=== PATIENT | female | born 1960 | race Caucasian/White ===

== ENCOUNTER 2019-03-29 13:19 | Emergency (ER) | payer OTHER ==
[~2019-03-29] VITALS: Ht 177.8 cm; Wt 105.8 kg
[~2019-03-29 13:19] MED LIST: CELE20TA OR; FLECTOR PATCH TOP; FLEXARIL PO; FLEXERIL PO; KLON1TAB OR; LISI20TA5 PO; LOPR50TA OR; TRAM50TA2 OR; VICO5TA PO
[2019-03-29] MEDS ORDERED: DICYCLOMINE INJ 20MG/2ML (J0500) IM ONE (14:00)
[2019-03-29 14:23] LABS: BASO % 0.5 % (0.0-1.0); EOS % 0.6 % (0.0-3.0); HEMATOCRIT 43.3 % (36.0-47.0); HEMOGLOBIN 14.5 g/dl (12.0-15.5); LYMPH % 30.5 % (24.0-44.0); MEAN CORPUSCULAR HEMOGLOBIN 30.8 pg (27.0-33.0); MEAN CORPUSCULAR HGB CONC 33.5 g/dl (32.0-36.5); MEAN CORPUSCULAR VOLUME 91.9 fl (80.0-96.0); MONO # 0.5 10^3/uL (0.0-0.8); MONO % 6.9 % (0.0-5.0); NEUTROPHILS # 4.1 10^3/uL (1.5-8.5); NEUTROPHILS % 61.3 % (36.0-66.0); PLATELET COUNT, AUTOMATED 266 10^3/uL (150-450); RED BLOOD COUNT 4.71 10^6/uL (4.00-5.40); WHITE BLOOD COUNT 6.7 10^3/uL (4.0-10.0)
[2019-03-29 14:54] LABS: ALBUMIN 3.8 GM/DL (3.2-5.2); ALT/SGPT 23 U/L (12-78); BILIRUBIN,DIRECT < 0.1 MG/DL (0.0-0.2); BILIRUBIN,TOTAL 0.4 MG/DL (0.2-1.0); BLOOD UREA NITROGEN 9 MG/DL (7-18); CALCIUM LEVEL 9.6 MG/DL (8.5-10.1); CARBON DIOXIDE LEVEL 27 MEQ/L (21-32); CHLORIDE LEVEL 110 MEQ/L (98-107); CREATININE FOR GFR 0.94 MG/DL (0.55-1.30); GLOMERULAR FILTRATION RATE > 60.0 (>51); GLUCOSE, FASTING 91 MG/DL (70-100); LIPASE 163 U/L (73-393); POTASSIUM SERUM 4.4 MEQ/L (3.5-5.1); SODIUM LEVEL 143 MEQ/L (136-145); TOTAL PROTEIN 6.8 GM/DL (6.4-8.2)
[2019-03-29] MEDS ORDERED: ISOVUE-370 76% 100ML VIAL (Q9967) As Ordered ONE (15:00)
[2019-03-29] MEDS ORDERED: NS 1,000 ML IV ONE (15:30)
--- NOTE | 2019-03-29 15:52 | REP ---
CT abdomen and pelvis with IV but without oral contrast: History: Abdomen pain. CT contrast dose: 100 mL of intravenous Isovue [address] findings: Digital preliminary transmission builder radiograph is unremarkable. The lung bases are clear on axial CT images. There is mild diffuse fatty infiltration in the liver. No focal hepatic lesion is seen. The spleen is normal in size, homogeneous in texture. No abnormalities noted in the pancreas. The gallbladder is surgically absent. Kidneys enhance symmetrically and are morphologically intact. Normal caliber aorta is seen. A normal appendix is observed in the right lower quadrant. There is mild pancolonic diverticulosis without CT evidence of diverticulitis. No gastrointestinal tract obstruction is seen. No abdominal wall defect is seen. No free fluid or free intraperitoneal air is seen. Uterus is surgically absent. Impression: Mild pancolonic diverticulosis without CT evidence of diverticulitis. Mild diffuse fatty infiltration of the liver. Normal appendix. Electronically Signed by Nicko Martinez MD 03/29/2019 04:59 P
[2019-03-29 16:00] VITALS: BP 141/70
[2019-03-29] MEDS ORDERED: REGL10TA6 PO (16:11)
[2019-03-29] MEDS ORDERED: SUCR1SS PO (16:12)
[2019-03-29] MEDS ORDERED: PEPC1TAB5 PO (16:12)
== END 2019-03-29 16:30 | disposition home or self-care (01) ==
LOC: M ED 13:19
DX: R10.9 Unspecified abdominal pain (principal); I10 Essential (primary) hypertension; F17.200 Nicotine dependence, unspecified, uncomplicated; Z79.899 Other long term (current) drug therapy
CPT/HCPCS: 74177; 80048; 80076; 83690; 85025; 96360; 96372; 99284; J0500; Q9967

== ENCOUNTER → 2019-07-13 | Outpatient (REF) | payer OTHER ==
[~2019-07-13] MED LIST changes: +CELE20TA PO; +LOPR1TAB6 PO; +PEPC1TAB5 PO; +REGL10TA6 PO; +SUCR1SS PO
== END ==
LOC: M LAB REF 11:56
PROVIDERS: ATTEND Internal Medicine Gastroenterology
DX: K58.2 Mixed irritable bowel syndrome (principal)

== ENCOUNTER 2019-07-17 09:41 | Day surgery (SDC) | payer OTHER ==
[~2019-07-17] VITALS: Ht 170.2 cm; Wt 104.8 kg
[~2019-07-17 09:41] MED LIST changes: +NS 1,000 ML IV ONE
[2019-07-17] MEDS ORDERED: LIDOCAINE 2% INJ 100 MG/5 ML SDV (FOR ANES.) As Ordered ONE (10:34)
[2019-07-17] MEDS ORDERED: propofoL 200 MG/20 ML VIAL As Ordered ONE (10:34)
[2019-07-17] MEDS ORDERED: fentaNYL 100 MCG/2 ML INJECTION (J3010) As Ordered ONE (11:08)
--- NOTE | 2019-07-17 12:00 | ROOR ---
Patient Name: Kenzie Randolph Procedure Date: 07/17/2019 11:44 AM Date of : 1960 Age: 59 Room: [facility] Gender: Female Note Status: Finalized Procedure: Upper GI endoscopy Indications: Generalized abdominal pain, Weight loss Providers: Ezra CLEMONS MD Referring MD: DMITRY SINCLAIR DO Requesting Provider: Medicines: Monitored Anesthesia Care Complications: No immediate complications. Procedure: Pre-Anesthesia Assessment: - The heart rate, respiratory rate, oxygen saturations, blood pressure, adequacy of pulmonary ventilation, and response to care were monitored throughout the procedure. The Endoscope was introduced through the mouth, and advanced to the second part of duodenum. The upper GI endoscopy was accomplished without difficulty. The patient tolerated the procedure well. Findings: The examined esophagus was normal. The esophagus was normal. The stomach was normal. (perhaps large/compliant stomach, but otherwise normal) The examined duodenum was normal. Impression: - Normal esophagus. - Normal stomach. - Normal examined duodenum. - No specimens collected. Recommendation: - Observe patient's clinical course. - Perform a colonoscopy today. Ezra Clemons MD Ezra CLEMONS MD 07/17/2019 11:59:41 AM Electronically signed by Ezra CLEMONS MD Number of Addenda: 0 Note Initiated On: 07/17/2019 11:44 AM Estimated Blood Loss: Estimated blood loss: none.
--- NOTE | 2019-07-17 12:16 | ROOR ---
Patient Name: Kenzie Randolph Procedure Date: 07/17/2019 11:45 AM Date of : 1960 Age: 59 Room: [facility] Gender: Female Note Status: Finalized Procedure: Colonoscopy Indications: Irritable bowel syndrome, Change in bowel habits, Chronic diarrhea Providers: Ezra CLEMONS MD Referring MD: DMITRY SINCLAIR DO Requesting Provider: Medicines: Monitored Anesthesia Care Complications: No immediate complications. Procedure: Pre-Anesthesia Assessment: - The heart rate, respiratory rate, oxygen saturations, blood pressure, adequacy of pulmonary ventilation, and response to care were monitored throughout the procedure. The Colonoscope was introduced through the anus and advanced to the cecum, identified by appendiceal orifice and ileocecal valve. The colonoscopy was performed without difficulty. The patient tolerated the procedure well. The quality of the bowel preparation was good. Findings: The perianal and digital rectal examinations were normal. Multiple medium-mouthed diverticula were found in the sigmoid colon. Internal hemorrhoids were found during retroflexion. The hemorrhoids were medium-sized. The exam was otherwise normal throughout the examined colon. Impression: - Diverticulosis in the sigmoid colon. - Internal hemorrhoids. - Otherwise normal colonoscopy. - No specimens collected. Recommendation: - Continue present medications. - -Await final results of lab work. I will call you with results. Ezra Clemons MD Ezra CLEMONS MD 07/17/2019 12:16:41 PM Electronically signed by Ezra CLEMONS MD Number of Addenda: 0 Note Initiated On: 07/17/2019 11:45 AM Estimated Blood Loss: Estimated blood loss: none.
[2019-07-17 12:30] VITALS: BP 175/79
== END 2019-07-17 12:43 | disposition home or self-care (01) ==
LOC: M OPP 09:41
PROVIDERS: ATTEND Internal Medicine Gastroenterology
DX: K58.9 Irritable bowel syndrome, unspecified (principal); R19.5 Other fecal abnormalities; K57.30 Diverticulosis of large intestine without perforation or abscess without bleeding; K64.8 Other hemorrhoids; R63.4 Abnormal weight loss; R10.84 Generalized abdominal pain; F17.200 Nicotine dependence, unspecified, uncomplicated
CPT/HCPCS: 43235; 45378; J3010